=== PATIENT | female | born 1965 | race Caucasian/White ===

== ENCOUNTER 2017-08-01 08:50 | Day surgery (SDC) | payer OTHER ==
[~2017-08-01] VITALS: Ht 167.6 cm; Wt 55.8 kg
[~2017-08-01 08:50] MED LIST: ACETAMINOPHEN325 M1 PO; DICLOFENAC POTA50 MG PO; MOBIC15 MG PO; NORCO 10-325 T1 EACH PO
--- NOTE | 2017-08-01 12:22 | NUR ---
LE 1100 PT WATCHING TV WITH NO C/O'S. 1220 PT RESTING. REU.
--- NOTE | 2017-08-01 14:06 | NUR ---
08/01/17 1406 Chely Juares 5980-PATIENT ARRIVED TO PACU ON 6L MASK O2 SAT 100% PATIENT AWAKE AND DENIES PAIN OR NAUSEA. LEFT ARM DRESSING CDI ELEVATED ON PILLOW. PATIENT REPORTS NUMBNESS, ARM IS HEAVY. GOOD CAP REFILL RADIAL PULSE AND WARMTH.
[2017-08-01] MEDS ORDERED: NORCO 7.5-3251 EACH PO (14:31)
--- NOTE | 2017-08-02 14:06 | OR ---
[facility] [address] [place], [place] [address] Signed DATE OF PROCEDURE: 08/01/17 PREOPERATIVE DIAGNOSIS: Olecranon bursitis, left elbow. POSTOPERATIVE DIAGNOSIS Actually sebaceous cyst, posterior aspect left elbow. PROCEDURE PERFORMED: Excision of sebaceous cyst. SURGEON: Rodrigo Wahl MD. ANESTHESIA: Block with sedation. SPECIMENS AND COMPLICATIONS There were no specimens. There were no complications. TOURNIQUET TIME: About 20 minutes. DESCRIPTION OF PROCEDURE The patient was taken to the operating room. After anesthesia was induced and the airway gently supported, she was placed in the right lateral decubitus position and the left upper extremity was positioned, prepped and draped in a routine sterile fashion. The arm was exsanguinated with elevation. Pneumatic tourniquet about the upper arm was inflated to 250 mmHg pressure. A longitudinal incision was made directly over the palpable mass. Skin was divided sharply. At this point, we inadvertently punctured the lesion and the typical sebaceous cyst material came oozing out. After evacuating the cyst, it was excised in toto using a small pair of tenotomy scissors. Hemostasis was then achieved with electrocautery. Routine wound closure was accomplished and a sterile dressing applied. She was awakened to the recovery room where she arrived in stable condition. Counts were correct and antibiotic protocols were followed. MD ARNOLDO Jimenez/Modl /[id number] Electronically Signed By: RODRIGO WAHL MD 08/02/17 1406 PATIENT NAME: JESS ELIZALDE OPERATIVE REPORT DATE OF : 65 PHYSICIAN: RODRIGO WAHL MD REPORT #: [id number] REPORT IS CONFIDENTIAL AND NOT TO BE RELEASED WITHOUT AUTHORIZATION [address] [place], [place] [address] Signed cc: Addie Orozco PA-C Electronically Signed By: RODRIGO WAHL MD 08/02/17 1406 PATIENT NAME: JESS ELIZALDE OPERATIVE REPORT DATE OF : 65 PHYSICIAN: RODRIGO WAHL MD REPORT #: [id number] REPORT IS CONFIDENTIAL AND NOT TO BE RELEASED WITHOUT AUTHORIZATION
== END 2017-08-01 15:15 | disposition home or self-care (01) ==
LOC: OPS 08:50 → DS 08:50 → OPS 11:00
PROVIDERS: Orthopaedic Surgery
PROC: 0HBEXZZ Excision of Left Lower Arm Skin, External Approach (ICD-10-PCS; principal; 2017-08-01 11:00)
DX: L72.3 Sebaceous cyst (principal); M70.22 Olecranon bursitis, left elbow; Z88.0 Allergy status to penicillin
CPT/HCPCS: 01710; 36415; 64417; 76942; 80053; 85025; J0690; J1100; J2250; J2405; J2704; J2795; J3010; J7120

== ENCOUNTER 2018-04-10 09:02 | Day surgery (SDC) | payer OTHER ==
[~2018-04-10] VITALS: Ht 167.6 cm; Wt 58.1 kg
[~2018-04-10 09:02] MED LIST changes: +NORCO 7.5-3251 EACH PO
--- NOTE | 2018-04-10 11:25 | NUR ---
04/10/18 Chauncey5 Cathleen Gannon 1121 PT ARRIVD TO PACU WITH 3L VIA NC IN PLACE, RESP EVEN AND UNLABORED. PT REACTIVE AND DENIES PAIN AND NAUSEA. PT REORIENTED TO PACU AND BACK TO SLEEP.
--- NOTE | 2018-04-11 08:19 | OR ---
[facility] [address] [place], [place] [address] Signed DATE OF OPERATION: 04/10/2018 SURGEON: Ni Gutierrez MD PREOPERATIVE DIAGNOSIS: Daughter with colonic polyps at age 30. POSTOPERATIVE DIAGNOSES: 1. Polyps at hepatic flexure, 40, 25, 22, 12, 10 and 6 cm. 2. Minimal sigmoid diverticulosis. 3. Minimal internal hemorrhoids. PROCEDURE: Colonoscopy with snare polypectomy at hepatic flexure and hot biopsy forceps. INDICATIONS: Tessy is a 53-year-old female whose 30-year-old daughter has had two separate colonoscopies. She had a total of nine colonic polyps removed. The doctors told her that her parents and all brothers and sisters need to be checked. As a result, Tessy has been referred to my office for her initial colonoscopy at age 53. She has no lower GI complaints. I gave her a pamphlet in the office on colonoscopy and we reviewed that together along with the risks and benefits. She understands there is risk including, but not limited to gas bloating, crampy abdominal pain, bleeding, perforation, requiring surgery, and missed diagnosis. She is well aware of the colonic polyps can grow and become cancerous. She also understands the need for IV conscious sedation. She had expressed her understanding and wished to proceed. PROCEDURE NOTE: Tessy was taken into our endoscopy suite and placed in the left lateral decubitus position. She was given 9 mg of Versed and 150 mcg of fentanyl. A digital rectal exam was performed and this was unremarkable. The adult colonoscope was then introduced and advanced all around into the cecum under direct visualization of camera without difficulty. Her prep was quite good. The scope was then slowly withdrawn. The above-mentioned polyps were removed with the help of hot biopsy forceps. We did use our snare at the hepatic flexure. That was a larger polyp probably 10 mm in an oval shaped pattern. The others were all smaller anywhere from 3-6 mm. She also has a few diverticula in the sigmoid colon. They are small in size, few in number, and scattered about. Upon retroflexion of scope, she does have some tiny internal hemorrhoid tissue. After this, the gas was suctioned out and the colonoscope removed. Tessy tolerated the procedure quite well. Electronically Signed By: NI GUTIERREZ MD 04/11/18 0819 PATIENT NAME: TESSY ELIZALDE OPERATIVE REPORT DATE OF : 65 REPORT #: [id number] PHYSICIAN: NI GUTIERREZ MD PCP: CATHY HOUSE REPORT IS CONFIDENTIAL AND NOT TO BE RELEASED WITHOUT AUTHORIZATION [facility] [address] [place], [place] [address] Signed RECOMMENDATIONS: Tessy will follow up my office in 7 to 14 days to review her results. Based on the sure number of polyps we removed, she will need a repeat colonoscopy here in 18 to 24 months. MD ARINA Lance/HUSSAIN /[id number] cc: MD Cathy Lance PA Copies: NI GUTIERREZ MD, JACQUELINE PA ~ Electronically Signed By: NI GUTIERREZ MD 04/11/18 0819 PATIENT NAME: TESSY ELIZALDE OPERATIVE REPORT DATE OF : 65 REPORT #: [id number] PHYSICIAN: NI GUTIERREZ MD PCP: CATHY HOUSE REPORT IS CONFIDENTIAL AND NOT TO BE RELEASED WITHOUT AUTHORIZATION
== END 2018-04-10 12:06 | disposition home or self-care (01) ==
LOC: OPS 09:02 → DS 10:30 → OPS 10:30
PROVIDERS: Colon & Rectal Surgery
PROC: 0DBE8ZZ Excision of Large Intestine, Via Natural or Artificial Opening Endoscopic (ICD-10-PCS; 2018-04-10)
PROC: 0DBL8ZZ Excision of Transverse Colon, Via Natural or Artificial Opening Endoscopic (ICD-10-PCS; principal; 2018-04-10 10:30)
DX: Z12.11 Encounter for screening for malignant neoplasm of colon (principal); K63.5 Polyp of colon; K57.30 Diverticulosis of large intestine without perforation or abscess without bleeding; K64.8 Other hemorrhoids; F17.210 Nicotine dependence, cigarettes, uncomplicated; Z83.71 Family history of colonic polyps; Z88.0 Allergy status to penicillin; Z88.8 Allergy status to other drugs, medicaments and biological substances
CPT/HCPCS: 99153; G0500; J2250; J3010; J7120